=== PATIENT | male | born 1930 | race Caucasian/White ===

== ENCOUNTER 2016-05-06 11:10 | Inpatient (IN) | payer MEDICARE, OTHER ==
[~2016-05-06] VITALS: Ht 175.3 cm; Wt 80.0 kg
[~2016-05-06 11:10] MED LIST: ACID1TAB7 PO; AMLO5TAB4 PO; AMOX1TAB12 PO; AMOX1TAB64 PO; ASPI-621 PO; ATOR40TA78 PO; CEFD300C2 PO; CEFU500T PO; CHOL200040 PO; CIPR250T2 PO; CIPR250T27 PO; CIPR500T3 PO; DOXY100T PO; DUTA0.5C PO; FERR325T20 PO; HYDR-3138 PO; HYDR-3240 PO; LISI5TAB7 PO; MAGN2400 PO; METO-99 PO; MULT1TAB81 PO; OMEP-110 PO; OMEP20CA9 PO; ONDA4TAB10 PO; POLY17PO5 PO; SULF1TAB24 PO; TAMS0.4C2 PO
[2016-05-06] MEDS ORDERED: SODIUM CHLORIDE 0.9% 1,000 ML IV ONE (12:09)
[2016-05-06] MEDS ORDERED: SODIUM CHLORIDE FLUSH 10ML SYR IVF ONE (12:30)
[2016-05-06 12:42] LABS: HEMOGLOBIN 11.3 g/dL (13.7-18.0)
[2016-05-06 12:55] LABS: BLOOD UREA NITROGEN 31 mg/dL (7-18)
[2016-05-06 12:59] LABS: ASPARTATE AMINO TRANSFERASE 10 U/L (15-37)
[2016-05-06 13:41] LABS: DIFF TOTAL CELLS COUNTED 100 CELL DIFF
[2016-05-06 13:43] LABS: VERIFY COUNTS? YES
[2016-05-06 13:44] LABS: ANISOCYTOSIS 1+; MICROCYTOSIS 1+
[2016-05-06 13:45] LABS: OVALOCYTES 1+
[2016-05-06] MEDS ORDERED: CEFTRIAXONE PMX 1GM/50ML 50 ML IV ONE (14:30)
[2016-05-06] MEDS ORDERED: CEFTRIAXONE PMX 1GM/50ML 50 ML ONE (15:21)
[2016-05-06] MEDS ORDERED: SODIUM CHLORIDE 0.9% 1,000 ML IV SCH (15:38)
[2016-05-06] MEDS ORDERED: LABETALOL 5MG/ML, 20ML IV PRN (16:00)
[2016-05-06] MEDS ORDERED: DOCUSATE 100 MG CAPSULE PO PRN (16:00)
[2016-05-06] MEDS ORDERED: BISACODYL 10 MG SUPP PR PRN (16:00)
[2016-05-06] MEDS ORDERED: POLYETHYLENE GLYCOL 17 GM PACKET PO PRN (16:00)
[2016-05-06] MEDS ORDERED: VANCOMYCIN PER PHARMACY MC PRN (16:00)
[2016-05-06 16:17] VITALS: BP 169/72
[2016-05-06] MEDS ORDERED: PHARMACOKINETIC MONITORING MC PRN (16:30)
[2016-05-06] MEDS ORDERED: VANCOMYCIN 1,600 MG in SODIUM CHLORIDE 0.9% 250 ML IV ONE (16:30)
[2016-05-06] MEDS ORDERED: PHARMACOKINETIC CONSULTATION MC ONE (16:30)
[2016-05-06] MEDS: CEFTRIAXONE PMX 2GM/50ML 50 ML IV SCH (17:03)
[2016-05-06 19:23] VITALS: BP 149/65
[2016-05-06] MEDS: METOPROLOL TARTRATE 100 MG TABLET PO SCH (21:48)
[2016-05-06] MEDS: ACETAMINOPHEN 325 MG TABLET PO PRN (21:48)
[2016-05-07 01:28] VITALS: BP 154/71
[2016-05-07 04:54] LABS: HEMOGLOBIN 10.6 g/dL (13.7-18.0)
[2016-05-07 05:02] LABS: BLOOD UREA NITROGEN 26 mg/dL (7-18)
[2016-05-07 05:16] LABS: DIFF TOTAL CELLS COUNTED 100 CELL DIFF
[2016-05-07 05:18] LABS: ANISOCYTOSIS 1+; MICROCYTOSIS 1+; POLYCHROMASIA 1+; VERIFY COUNTS? YES
[2016-05-07 05:19] LABS: OVALOCYTES 1+
[2016-05-07 06:48] VITALS: BP 156/71
[2016-05-07] MEDS: METOPROLOL TARTRATE 100 MG TABLET PO SCH ×2 (09:15→22:41)
[2016-05-07] MEDS: MULTIVITAMINS WITH IRON TABLET PO SCH (09:16)
[2016-05-07] MEDS: ASPIRIN 81 MG TABLET EC PO SCH (09:16)
[2016-05-07] MEDS: TAMSULOSIN 0.4 MG CAP.ER.24H PO SCH (09:16)
[2016-05-07 12:42] VITALS: BP 131/63
[2016-05-07] MEDS: CEFTRIAXONE PMX 2GM/50ML 50 ML IV SCH (15:49)
[2016-05-07 20:50] VITALS: BP 147/62
[2016-05-08 02:50] VITALS: BP 166/68
[2016-05-08 05:13] LABS: HEMOGLOBIN 10.8 g/dL (13.7-18.0)
[2016-05-08 05:20] LABS: BLOOD UREA NITROGEN 29 mg/dL (7-18)
[2016-05-08 05:46] LABS: DIFF TOTAL CELLS COUNTED 100 CELL DIFF
[2016-05-08 05:48] LABS: ANISOCYTOSIS 1+; MICROCYTOSIS 1+; VERIFY COUNTS? YES
[2016-05-08 05:50] LABS: LARGE PLATELETS 1+; OVALOCYTES 1+; POLYCHROMASIA 1+
[2016-05-08] MEDS: metroNIDAZOLE 500 MG TABLET PO SCH ×3 (08:00→22:20)
[2016-05-08 08:13] VITALS: BP 173/74
[2016-05-08] MEDS: TAMSULOSIN 0.4 MG CAP.ER.24H PO SCH (08:20)
[2016-05-08] MEDS: ASPIRIN 81 MG TABLET EC PO SCH (08:20)
[2016-05-08] MEDS: MULTIVITAMINS WITH IRON TABLET PO SCH (08:20)
[2016-05-08] MEDS: METOPROLOL TARTRATE 100 MG TABLET PO SCH ×2 (08:20→22:20)
[2016-05-08 13:56] VITALS: BP 163/67
[2016-05-08] MEDS ORDERED: GOLYTELY 4,000ML ORAL.SOL PO ONE (15:00)
[2016-05-08] MEDS: CEFTRIAXONE PMX 2GM/50ML 50 ML IV SCH (16:19)
[2016-05-08] MEDS: ONDANSETRON 2MG/ML, 2ML IVP PRN ×2 (16:20→22:36)
[2016-05-08] MEDS ORDERED: NEOMYCIN SULFATE 500 MG TABLET PO SCH ×2 (17:00→23:00)
[2016-05-08] MEDS ORDERED: VANCOMYCIN 1,600 MG in SODIUM CHLORIDE 0.9% 250 ML IV SCH (18:00)
[2016-05-08 19:09] VITALS: BP 138/67
[2016-05-08] MEDS: D5%-0.45NACL+KCL 20MEQ 1,000 ML IV SCH (23:28)
[2016-05-09 03:00] VITALS: BP 159/68
[2016-05-09 04:54] LABS: BLOOD UREA NITROGEN 23 mg/dL (7-18)
[2016-05-09 04:58] LABS: HEMOGLOBIN 11.3 g/dL (13.7-18.0)
[2016-05-09] MEDS: metroNIDAZOLE 500 MG TABLET PO SCH (05:08)
[2016-05-09] MEDS: D5%-0.45NACL+KCL 20MEQ 1,000 ML IV SCH ×2 (07:59→08:50)
[2016-05-09 08:45] VITALS: BP 151/65
[2016-05-09] MEDS: ASPIRIN 81 MG TABLET EC PO SCH (09:00)
[2016-05-09] MEDS: METOPROLOL TARTRATE 100 MG TABLET PO SCH ×2 (10:31→21:00)
[2016-05-09] MEDS: TAMSULOSIN 0.4 MG CAP.ER.24H PO SCH (10:31)
[2016-05-09] MEDS: MULTIVITAMINS WITH IRON TABLET PO SCH (10:31)
[2016-05-09] MEDS: AMPICILLIN/SULBACTAM 1,500 MG in SODIUM CHLORIDE 0.9% 50 ML IV SCH ×2 (10:31→17:00)
[2016-05-09 14:59] VITALS: BP 150/66
[2016-05-09] MEDS ORDERED: BUPIVACAINE/PF-EPI 0.25% 1:200K ONE (17:05)
[2016-05-09] MEDS ORDERED: NEOSTIGMINE 1 MG/ML, 10ML ONE (17:11)
[2016-05-09] MEDS ORDERED: ROCURONIUM 10 MG/ML ONE (17:11)
[2016-05-09] MEDS ORDERED: FENTANYL PF 250 MCG/5ML ONE ×2 (17:11→18:43)
[2016-05-09] MEDS ORDERED: PHENYLEPHRINE 10 MG/ML ONE (17:11)
[2016-05-09] MEDS ORDERED: PROPOFOL 10 MG/ML, 20ML ONE (17:11)
[2016-05-09] MEDS ORDERED: SUCCINYLCHOLINE 20 MG/ML, 10ML ONE (17:11)
[2016-05-09] MEDS ORDERED: CEFOTETAN 2 GM ONE (17:11)
[2016-05-09] MEDS ORDERED: GLYCOPYRROLATE 0.2MG/1ML ONE ×2 (17:11)
[2016-05-09] MEDS ORDERED: ONDANSETRON 2MG/ML, 2ML IVPush PRN (18:00)
[2016-05-09] MEDS ORDERED: EPHEDRINE 50 MG/ML, 1ML IVPush PRN (18:00)
[2016-05-09] MEDS ORDERED: METOPROLOL 1 MG/ML, 5ML IV PRN (18:00)
[2016-05-09] MEDS ORDERED: LABETALOL 5MG/ML, 20ML IV PRN (18:00)
[2016-05-09] MEDS ORDERED: ACETAMINOPHEN 325 MG TABLET PO PRN (18:00)
[2016-05-09] MEDS ORDERED: PROMETHAZINE 25 MG/ML, 1ML IV PRN (18:00)
[2016-05-09] MEDS ORDERED: hydrALAzine 20 MG/ML, 1ML IV PRN (18:00)
[2016-05-09] MEDS ORDERED: OXYcodone 5 MG/5 ML ORAL.SOL UDC PO PRN (18:00)
[2016-05-09] MEDS ORDERED: HYDROmorphone 1 MG/ML, 1ML IV PRN (18:00)
[2016-05-09] MEDS ORDERED: FENTANYL PF 100 MCG/2ML IV PRN (18:00)
[2016-05-09] MEDS ORDERED: HYDROmorphone 2 MG/ML, 1ML ONE (19:37)
[2016-05-09] MEDS ORDERED: OXYcodone 5 MG/5 ML ORAL.SOL UDC ONE (19:37)
[2016-05-09 20:49] VITALS: BP 155/75
[2016-05-10] MEDS: MORPHINE SULFATE 4 MG/ML, 1ML IVPush PRN ×2 (00:11→10:08)
[2016-05-10] MEDS: AMPICILLIN/SULBACTAM 1,500 MG in SODIUM CHLORIDE 0.9% 50 ML IV SCH ×3 (00:11→17:42)
[2016-05-10 03:23] VITALS: BP 115/65
[2016-05-10 05:33] LABS: BLOOD UREA NITROGEN 22 mg/dL (7-18)
[2016-05-10 05:38] LABS: HEMOGLOBIN 11.4 g/dL (13.7-18.0)
[2016-05-10] MEDS: D5%-0.45NACL+KCL 20MEQ 1,000 ML IV SCH ×2 (06:31→19:31)
[2016-05-10 09:17] VITALS: BP 112/58
[2016-05-10] MEDS: MULTIVITAMINS WITH IRON TABLET PO SCH (09:34)
[2016-05-10] MEDS: TAMSULOSIN 0.4 MG CAP.ER.24H PO SCH (09:34)
[2016-05-10] MEDS: METOPROLOL TARTRATE 100 MG TABLET PO SCH ×2 (09:34→20:21)
[2016-05-10] MEDS: ASPIRIN 81 MG TABLET EC PO SCH (09:35)
[2016-05-10 12:54] VITALS: BP 111/62
[2016-05-10] MEDS: HYDROcodone/APAP 5/325 TABLET PO PRN ×2 (14:34→15:02)
[2016-05-10 19:11] VITALS: BP 109/56
[2016-05-11] MEDS: AMPICILLIN/SULBACTAM 1,500 MG in SODIUM CHLORIDE 0.9% 50 ML IV SCH ×3 (01:00→17:04)
[2016-05-11] MEDS: HYDROcodone/APAP 5/325 TABLET PO PRN ×3 (02:07→17:04)
[2016-05-11 02:47] VITALS: BP 153/69
[2016-05-11 04:59] LABS: HEMOGLOBIN 10.4 g/dL (13.7-18.0)
[2016-05-11 05:00] LABS: BLOOD UREA NITROGEN 22 mg/dL (7-18)
[2016-05-11] MEDS: D5%-0.45NACL+KCL 20MEQ 1,000 ML IV SCH ×2 (05:19→16:12)
[2016-05-11 07:56] VITALS: BP 137/63
[2016-05-11] MEDS: ASPIRIN 81 MG TABLET EC PO SCH (08:43)
[2016-05-11] MEDS: TAMSULOSIN 0.4 MG CAP.ER.24H PO SCH (08:43)
[2016-05-11] MEDS: MULTIVITAMINS WITH IRON TABLET PO SCH (08:43)
[2016-05-11] MEDS: METOPROLOL TARTRATE 100 MG TABLET PO SCH ×2 (08:43→21:30)
[2016-05-11 12:15] VITALS: BP 155/68
[2016-05-11 20:50] VITALS: BP 144/70
[2016-05-12] MEDS: AMPICILLIN/SULBACTAM 1,500 MG in SODIUM CHLORIDE 0.9% 50 ML IV SCH ×3 (00:40→18:10)
[2016-05-12 02:25] VITALS: BP 171/70
[2016-05-12] MEDS: D5%-0.45NACL+KCL 20MEQ 1,000 ML IV SCH (02:57)
[2016-05-12 05:22] LABS: BLOOD UREA NITROGEN 16 mg/dL (7-18)
[2016-05-12 05:28] LABS: HEMOGLOBIN 11.2 g/dL (13.7-18.0)
[2016-05-12 08:00] VITALS: BP 173/82
[2016-05-12] MEDS: METOPROLOL TARTRATE 100 MG TABLET PO SCH ×2 (09:39→21:31)
[2016-05-12] MEDS: TAMSULOSIN 0.4 MG CAP.ER.24H PO SCH (09:39)
[2016-05-12] MEDS: ASPIRIN 81 MG TABLET EC PO SCH (09:39)
[2016-05-12] MEDS: MULTIVITAMINS WITH IRON TABLET PO SCH (09:39)
[2016-05-12] MEDS ORDERED: D5%-0.9% NACL 1,000 ML IV SCH (12:00)
[2016-05-12] MEDS: D5%-0.9% NACL 1,000 ML IV SCH (12:33)
[2016-05-12 14:00] VITALS: BP 161/72
[2016-05-12] MEDS: hydrALAzine 20 MG/ML, 1ML IV PRN (18:10)
[2016-05-12 20:45] VITALS: BP 158/76
[2016-05-13] MEDS: AMPICILLIN/SULBACTAM 1,500 MG in SODIUM CHLORIDE 0.9% 50 ML IV SCH ×3 (00:52→17:54)
[2016-05-13] MEDS: hydrALAzine 20 MG/ML, 1ML IV PRN (01:57)
[2016-05-13 02:30] VITALS: BP 166/78
[2016-05-13 05:12] LABS: HEMOGLOBIN 11.6 g/dL (13.7-18.0)
[2016-05-13 05:32] LABS: BLOOD UREA NITROGEN 14 mg/dL (7-18)
[2016-05-13 05:42] LABS: ANISOCYTOSIS 1+; HYPOCHROMIA 1+; MICROCYTOSIS 1+; POIKILOCYTOSIS 1+; POLYCHROMASIA 1+
[2016-05-13 05:43] LABS: OVALOCYTES 1+; SCHISTOCYTES 1+
[2016-05-13 05:44] LABS: LARGE PLATELETS 1+
[2016-05-13 08:08] VITALS: BP 127/71
[2016-05-13] MEDS: D5%-0.9% NACL 1,000 ML IV SCH (08:27)
[2016-05-13] MEDS: ASPIRIN 81 MG TABLET EC PO SCH (08:34)
[2016-05-13] MEDS: METOPROLOL TARTRATE 100 MG TABLET PO SCH ×2 (08:38→22:59)
[2016-05-13] MEDS: TAMSULOSIN 0.4 MG CAP.ER.24H PO SCH (08:38)
[2016-05-13] MEDS: MULTIVITAMINS WITH IRON TABLET PO SCH (08:39)
[2016-05-13 13:41] VITALS: BP 136/73
[2016-05-13 14:16] VITALS: BP 123/63
[2016-05-13 16:38] VITALS: BP 129/75
[2016-05-13 18:38] VITALS: BP 129/75
[2016-05-14] MEDS: AMPICILLIN/SULBACTAM 1,500 MG in SODIUM CHLORIDE 0.9% 50 ML IV SCH ×2 (01:04→08:57)
[2016-05-14 02:55] VITALS: BP 152/73
[2016-05-14 04:38] LABS: HEMOGLOBIN 10.6 g/dL (13.7-18.0)
[2016-05-14 04:52] LABS: BLOOD UREA NITROGEN 22 mg/dL (7-18)
[2016-05-14 07:25] VITALS: BP 155/79
[2016-05-14] MEDS: METOPROLOL TARTRATE 100 MG TABLET PO SCH ×2 (08:57→20:43)
[2016-05-14] MEDS: D5%-0.9% NACL 1,000 ML IV SCH ×3 (08:58→20:43)
[2016-05-14] MEDS: ASPIRIN 81 MG TABLET EC PO SCH (08:58)
[2016-05-14] MEDS: TAMSULOSIN 0.4 MG CAP.ER.24H PO SCH (08:58)
[2016-05-14] MEDS: MULTIVITAMINS WITH IRON TABLET PO SCH (08:58)
[2016-05-14 12:51] VITALS: BP 146/64
[2016-05-14] MEDS: ACETAMINOPHEN 325 MG TABLET PO PRN (14:54)
[2016-05-14 20:41] VITALS: BP 143/74
[2016-05-14 22:26] VITALS: BP 167/74
[2016-05-15 02:30] VITALS: BP 168/74
[2016-05-15 04:37] LABS: HEMOGLOBIN 10.7 g/dL (13.7-18.0)
[2016-05-15 04:52] LABS: BLOOD UREA NITROGEN 24 mg/dL (7-18)
[2016-05-15] MEDS: D5%-0.9% NACL 1,000 ML IV SCH (06:04)
[2016-05-15 07:09] VITALS: BP 147/69
[2016-05-15] MEDS: MULTIVITAMINS WITH IRON TABLET PO SCH (11:39)
[2016-05-15] MEDS: METOPROLOL TARTRATE 100 MG TABLET PO SCH ×2 (11:39→21:09)
[2016-05-15] MEDS: ASPIRIN 81 MG TABLET EC PO SCH (11:39)
[2016-05-15] MEDS: SODIUM CHLORIDE 0.9% 1,000 ML IV SCH ×3 (11:39→21:09)
[2016-05-15] MEDS: TAMSULOSIN 0.4 MG CAP.ER.24H PO SCH (11:39)
[2016-05-15 14:12] VITALS: BP 155/83
[2016-05-15 20:09] VITALS: BP 162/72
[2016-05-16 01:30] VITALS: BP 161/66
[2016-05-16] MEDS: SODIUM CHLORIDE 0.9% 1,000 ML IV SCH ×4 (02:09→19:00)
[2016-05-16 04:29] LABS: HEMOGLOBIN 10.4 g/dL (13.7-18.0)
[2016-05-16 04:40] LABS: BLOOD UREA NITROGEN 23 mg/dL (7-18)
[2016-05-16] MEDS: ACETAMINOPHEN 325 MG TABLET PO PRN (05:04)
[2016-05-16 06:49] VITALS: BP 173/98
[2016-05-16] MEDS: TAMSULOSIN 0.4 MG CAP.ER.24H PO SCH (07:46)
[2016-05-16] MEDS: ASPIRIN 81 MG TABLET EC PO SCH (07:46)
[2016-05-16] MEDS: METOPROLOL TARTRATE 100 MG TABLET PO SCH ×2 (07:46→20:19)
[2016-05-16] MEDS: MULTIVITAMINS WITH IRON TABLET PO SCH (07:46)
[2016-05-16] MEDS ORDERED: MAGNESIUM SULFATE PMX 4GM/100M 100 ML IV ONE (13:00)
[2016-05-16 13:24] VITALS: BP 129/61
[2016-05-16 20:16] VITALS: BP 152/67
[2016-05-17] MEDS: SODIUM CHLORIDE 0.9% 1,000 ML IV SCH ×3 (00:43→12:37)
[2016-05-17 02:42] VITALS: BP 162/72
[2016-05-17 05:01] LABS: HEMOGLOBIN 10.1 g/dL (13.7-18.0)
[2016-05-17 05:12] LABS: BLOOD UREA NITROGEN 25 mg/dL (7-18)
[2016-05-17 08:34] VITALS: BP 151/71
[2016-05-17] MEDS: ASPIRIN 81 MG TABLET EC PO SCH (10:12)
[2016-05-17] MEDS: TAMSULOSIN 0.4 MG CAP.ER.24H PO SCH (10:12)
[2016-05-17] MEDS: METOPROLOL TARTRATE 100 MG TABLET PO SCH (10:13)
[2016-05-17] MEDS: MULTIVITAMINS WITH IRON TABLET PO SCH (10:13)
[2016-05-17] MEDS ORDERED: AMOX1TAB12 PO (12:00)
[2016-05-17] MEDS ORDERED: AMOXICILLIN/CLAV 875-125MG TABLET PO SCH (12:00)
[2016-05-17] MEDS: ONDANSETRON 2MG/ML, 2ML IVP PRN (12:42)
[2016-05-17 12:43] VITALS: BP 169/66
== END 2016-05-17 15:55 | DRG 353 ==
LOC: ED 11:44 → EDIP 15:38 → 3NW 15:54
PROVIDERS: ADMIT Internal Medicine; ATTEND Internal Medicine
PROC: 0WUF0JZ Supplement Abdominal Wall with Synthetic Substitute, Open Approach (ICD-10-PCS; principal; 2016-05-09 17:30)
DX: K43.3 Parastomal hernia with obstruction, without gangrene (principal); N17.0 Acute kidney failure with tubular necrosis; N39.0 Urinary tract infection, site not specified; E87.1 Hypo-osmolality and hyponatremia; B95.2 Enterococcus as the cause of diseases classified elsewhere; N18.3 Chronic kidney disease, stage 3 (moderate); D64.89 Other specified anemias; D63.8 Anemia in other chronic diseases classified elsewhere; I13.10 Hypertensive heart and chronic kidney disease without heart failure, with stage 1 through stage 4 chronic kidney disease, or unspecified chronic kidney disease; K21.9 Gastro-esophageal reflux disease without esophagitis; N40.0 Benign prostatic hyperplasia without lower urinary tract symptoms; E78.5 Hyperlipidemia, unspecified; M54.9 Dorsalgia, unspecified; H91.90 Unspecified hearing loss, unspecified ear; G89.29 Other chronic pain; E83.42 Hypomagnesemia; K66.0 Peritoneal adhesions (postprocedural) (postinfection); I25.10 Atherosclerotic heart disease of native coronary artery without angina pectoris; R32 Unspecified urinary incontinence; K40.20 Bilateral inguinal hernia, without obstruction or gangrene, not specified as recurrent; Z85.038 Personal history of other malignant neoplasm of large intestine; Z85.46 Personal history of malignant neoplasm of prostate; Z87.440 Personal history of urinary (tract) infections; Z93.3 Colostomy status; Z85.048 Personal history of other malignant neoplasm of rectum, rectosigmoid junction, and anus; Z87.891 Personal history of nicotine dependence; Z90.49 Acquired absence of other specified parts of digestive tract
CPT/HCPCS: 36415; 71010; 74176; 80048; 80053; 81001; 82040; 82570; 83690; 83735; 83935; 84100; 84145; 84156; 84300; 85025; 85610; 87077; 87086; 87186; 87205; 93005; 96361; 96365; J0696; J2405; J2704; J2710; J3010; J3370; J3490; J7042; C1762; J0295; J0330; J0360; J2370; J3475; J3480; J7030; J7050; S0074

== ENCOUNTER 2016-08-04 17:02 | Inpatient (IN) | payer MEDICARE, OTHER ==
[~2016-08-04] VITALS: Ht 175.3 cm; Wt 79.6 kg
[~2016-08-04 17:02] MED LIST changes: -CEFD300C2 PO; +CEFD300C37 PO
[2016-08-04] MEDS ORDERED: SODIUM CHLORIDE FLUSH 10ML SYR IVF ONE (17:30)
[2016-08-04] MEDS ORDERED: SODIUM CHLORIDE 0.9% 1,000ML IV ONE (17:30)
[2016-08-04 17:48] LABS: PATH.CAST-FLAG NOT PRESENT; SPERM-FLAG NOT PRESENT; SRC-FLAG NOT PRESENT; XTAL-FLAG NOT PRESENT; YLC-FLAG NOT PRESENT
[2016-08-04 17:49] LABS: ASPARTATE AMINO TRANSFERASE 16 U/L (15-37); BLOOD UREA NITROGEN 35 mg/dL (7-18)
[2016-08-04] MEDS ORDERED: NITROFURANTOIN (MACROBID) 100 MG CAPSULE PO ONE (18:30)
[2016-08-04] MEDS ORDERED: SODIUM CHLORIDE 0.9%, 250ML IVBOLUS ONE (21:30)
[2016-08-04] MEDS ORDERED: MORPHINE SULFATE 4 MG/ML, 1ML IVPush ONE (21:30)
[2016-08-04] MEDS ORDERED: CEFTRIAXONE PMX 2GM/50ML 50 ML IV ONE (21:30)
[2016-08-04] MEDS ORDERED: MORPHINE SULFATE 4 MG/ML, 1ML ONE (21:56)
[2016-08-04] MEDS ORDERED: CEFTRIAXONE PMX 2GM/50ML 50 ML ONE (21:56)
[2016-08-04] MEDS: SODIUM CHLORIDE 0.9% 1,000 ML IV SCH (23:38)
[2016-08-05] MEDS ORDERED: hydrALAzine 20 MG/ML, 1ML IVPush PRN
[2016-08-05] MEDS ORDERED: BISACODYL 10 MG SUPP PR PRN
[2016-08-05] MEDS ORDERED: POLYETHYLENE GLYCOL 17 GM PACKET PO PRN
[2016-08-05] MEDS ORDERED: DOCUSATE 100 MG CAPSULE PO PRN
[2016-08-05] MEDS ORDERED: TRAZODONE 50MG TABLET PO PRN
[2016-08-05 05:43] LABS: ASPARTATE AMINO TRANSFERASE 13 U/L (15-37); BLOOD UREA NITROGEN 31 mg/dL (7-18)
[2016-08-05] MEDS: AMPICILLIN/SULBACTAM 3 GM in SODIUM CHLORIDE 0.9% 100 ML IV SCH ×5 (06:04→23:40)
[2016-08-05] MEDS: SODIUM CHLORIDE 0.9% 1,000 ML IV SCH ×2 (09:11→11:04)
[2016-08-05] MEDS: ASPIRIN 81 MG TABLET EC PO SCH (09:11)
[2016-08-05] MEDS: TAMSULOSIN 0.4 MG CAP.ER.24H PO SCH (09:11)
[2016-08-05] MEDS: METOPROLOL TARTRATE 100 MG TABLET PO SCH ×2 (09:12→21:37)
[2016-08-05] MEDS: HEPARIN 5,000 UNITS/ML, 1ML SQ SCH ×2 (09:12)
[2016-08-05 09:13] VITALS: BP 128/72
[2016-08-05] MEDS: morphine SULFATE 10 MG/ML, 1ML IVPush PRN ×2 (11:24→23:40)
[2016-08-05] MEDS: ACETAMINOPHEN 325 MG TABLET PO PRN ×3 (12:35→21:37)
[2016-08-05 14:27] VITALS: BP 135/65
[2016-08-05 19:34] VITALS: BP 127/62
[2016-08-06 01:56] VITALS: BP 145/64
[2016-08-06 04:32] LABS: BLOOD UREA NITROGEN 30 mg/dL (7-18)
[2016-08-06] MEDS: SODIUM CHLORIDE 0.9% 1,000 ML IV SCH ×2 (04:54→12:08)
[2016-08-06] MEDS: AMPICILLIN/SULBACTAM 3 GM in SODIUM CHLORIDE 0.9% 100 ML IV SCH ×2 (04:57→16:36)
[2016-08-06 07:19] VITALS: BP 154/72
[2016-08-06] MEDS: ASPIRIN 81 MG TABLET EC PO SCH (08:40)
[2016-08-06] MEDS: METOPROLOL TARTRATE 100 MG TABLET PO SCH ×2 (08:40→20:51)
[2016-08-06] MEDS: TAMSULOSIN 0.4 MG CAP.ER.24H PO SCH (08:40)
[2016-08-06] MEDS: ACETAMINOPHEN 325 MG TABLET PO PRN (08:42)
[2016-08-06] MEDS: morphine SULFATE 10 MG/ML, 1ML IVPush PRN (12:08)
[2016-08-06 14:23] VITALS: BP 131/65
[2016-08-06 19:11] VITALS: BP 146/73
[2016-08-06] MEDS ORDERED: ONDANSETRON 2MG/ML, 2ML ONE (20:48)
[2016-08-06] MEDS ORDERED: ONDANSETRON 2MG/ML, 2ML IVPush ONE (21:00)
[2016-08-07 01:50] VITALS: BP 127/68
[2016-08-07 05:07] LABS: BLOOD UREA NITROGEN 27 mg/dL (7-18)
[2016-08-07] MEDS: AMPICILLIN/SULBACTAM 3 GM in SODIUM CHLORIDE 0.9% 100 ML IV SCH ×3 (05:47→23:10)
[2016-08-07 07:24] VITALS: BP 153/76
[2016-08-07] MEDS: ASPIRIN 81 MG TABLET EC PO SCH (08:38)
[2016-08-07] MEDS: TAMSULOSIN 0.4 MG CAP.ER.24H PO SCH (08:38)
[2016-08-07] MEDS: METOPROLOL TARTRATE 100 MG TABLET PO SCH ×2 (08:39→21:50)
[2016-08-07] MEDS: ONDANSETRON ODT 4 MG PO PRN (10:21)
[2016-08-07 13:22] VITALS: BP 157/78
[2016-08-07 18:47] LABS: PATH.CAST-FLAG NOT PRESENT; SPERM-FLAG NOT PRESENT; SRC-FLAG NOT PRESENT; XTAL-FLAG NOT PRESENT; YLC-FLAG NOT PRESENT
[2016-08-07 20:38] VITALS: BP 158/84
[2016-08-07] MEDS: morphine SULFATE 10 MG/ML, 1ML IVPush PRN (23:34)
[2016-08-08 02:17] VITALS: BP 143/74
[2016-08-08 04:35] LABS: BLOOD UREA NITROGEN 24 mg/dL (7-18)
[2016-08-08] MEDS: ACETAMINOPHEN 325 MG TABLET PO PRN ×3 (06:51→23:00)
[2016-08-08] MEDS: AMPICILLIN/SULBACTAM 3 GM in SODIUM CHLORIDE 0.9% 100 ML IV SCH ×3 (06:52→22:56)
[2016-08-08 07:36] VITALS: BP 155/74
[2016-08-08] MEDS: ONDANSETRON ODT 4 MG PO PRN (07:39)
[2016-08-08] MEDS: ASPIRIN 81 MG TABLET EC PO SCH (07:39)
[2016-08-08] MEDS: METOPROLOL TARTRATE 100 MG TABLET PO SCH ×2 (07:40→20:45)
[2016-08-08] MEDS: TAMSULOSIN 0.4 MG CAP.ER.24H PO SCH (07:40)
[2016-08-08 14:22] VITALS: BP 159/89
[2016-08-08] MEDS ORDERED: FUROSEMIDE 20 MG/2 ML IV ONE (19:00)
[2016-08-08 19:28] VITALS: BP 149/71
[2016-08-08 20:33] VITALS: BP 175/97
[2016-08-08] MEDS ORDERED: MORPHINE SULFATE 4 MG/ML, 1ML ONE (20:42)
[2016-08-08] MEDS: morphine SULFATE 10 MG/ML, 1ML IVPush PRN (20:45)
[2016-08-08 22:56] VITALS: BP 152/72
[2016-08-09 01:18] VITALS: BP 131/72
[2016-08-09 05:13] LABS: BLOOD UREA NITROGEN 27 mg/dL (7-18)
[2016-08-09] MEDS: ACETAMINOPHEN 325 MG TABLET PO PRN (07:29)
[2016-08-09] MEDS: AMPICILLIN/SULBACTAM 3 GM in SODIUM CHLORIDE 0.9% 100 ML IV SCH ×3 (07:29→22:46)
[2016-08-09] MEDS: TAMSULOSIN 0.4 MG CAP.ER.24H PO SCH (09:26)
[2016-08-09] MEDS: ASPIRIN 81 MG TABLET EC PO SCH (09:26)
[2016-08-09] MEDS: METOPROLOL TARTRATE 100 MG TABLET PO SCH ×2 (09:30→20:42)
[2016-08-09 09:31] VITALS: BP 154/68
[2016-08-09 13:45] VITALS: BP 135/76
[2016-08-09] MEDS ORDERED: FUROSEMIDE 40 MG/4 ML IV ONE (16:00)
[2016-08-09] MEDS: HEPARIN 5,000 UNITS/ML, 1ML SQ SCH ×2 (16:42→22:46)
[2016-08-09 20:04] VITALS: BP 154/69
[2016-08-10 02:15] VITALS: BP 155/79
[2016-08-10 05:24] LABS: BLOOD UREA NITROGEN 24 mg/dL (7-18)
[2016-08-10 07:35] VITALS: BP 157/73
[2016-08-10] MEDS ORDERED: FUROSEMIDE 40 MG/4 ML IV ONE (08:00)
[2016-08-10] MEDS: AMPICILLIN/SULBACTAM 3 GM in SODIUM CHLORIDE 0.9% 100 ML IV SCH ×3 (09:14→23:13)
[2016-08-10] MEDS: HEPARIN 5,000 UNITS/ML, 1ML SQ SCH ×3 (09:18→23:13)
[2016-08-10] MEDS: METOPROLOL TARTRATE 100 MG TABLET PO SCH ×2 (09:18→19:51)
[2016-08-10] MEDS: TAMSULOSIN 0.4 MG CAP.ER.24H PO SCH (09:18)
[2016-08-10] MEDS: ASPIRIN 81 MG TABLET EC PO SCH (09:18)
[2016-08-10 13:17] VITALS: BP 153/66
[2016-08-10 18:45] VITALS: BP 148/69
[2016-08-11 02:18] VITALS: BP 159/78
[2016-08-11 04:47] LABS: BLOOD UREA NITROGEN 23 mg/dL (7-18)
[2016-08-11] MEDS: AMPICILLIN/SULBACTAM 3 GM in SODIUM CHLORIDE 0.9% 100 ML IV SCH ×3 (06:35→23:11)
[2016-08-11 07:13] VITALS: BP 148/70
[2016-08-11] MEDS: HEPARIN 5,000 UNITS/ML, 1ML SQ SCH ×3 (08:14→23:10)
[2016-08-11] MEDS: METOPROLOL TARTRATE 100 MG TABLET PO SCH ×2 (08:15→21:11)
[2016-08-11] MEDS: FUROSEMIDE 40 MG/4 ML IV SCH (08:15)
[2016-08-11] MEDS: ASPIRIN 81 MG TABLET EC PO SCH (08:15)
[2016-08-11] MEDS: TAMSULOSIN 0.4 MG CAP.ER.24H PO SCH (08:15)
[2016-08-11 13:54] VITALS: BP 129/60
[2016-08-11 20:21] VITALS: BP 135/69
[2016-08-12 01:18] VITALS: BP 153/73
[2016-08-12 04:51] LABS: BLOOD UREA NITROGEN 25 mg/dL (7-18)
[2016-08-12] MEDS: AMPICILLIN/SULBACTAM 3 GM in SODIUM CHLORIDE 0.9% 100 ML IV SCH ×3 (06:00→23:47)
[2016-08-12 07:23] VITALS: BP 137/71
[2016-08-12] MEDS: FUROSEMIDE 40 MG/4 ML IV SCH (08:14)
[2016-08-12] MEDS: TAMSULOSIN 0.4 MG CAP.ER.24H PO SCH (08:15)
[2016-08-12] MEDS: ASPIRIN 81 MG TABLET EC PO SCH (08:15)
[2016-08-12] MEDS: HEPARIN 5,000 UNITS/ML, 1ML SQ SCH ×3 (08:15→23:47)
[2016-08-12] MEDS: METOPROLOL TARTRATE 100 MG TABLET PO SCH ×2 (08:16→20:52)
[2016-08-12] MEDS: ACETAMINOPHEN 325 MG TABLET PO PRN (10:38)
[2016-08-12 14:12] VITALS: BP 143/78
[2016-08-12 19:34] VITALS: BP 138/69
[2016-08-13 02:02] VITALS: BP 154/72
[2016-08-13 07:31] VITALS: BP 136/73
[2016-08-13] MEDS: ASPIRIN 81 MG TABLET EC PO SCH (08:04)
[2016-08-13] MEDS: TAMSULOSIN 0.4 MG CAP.ER.24H PO SCH (08:04)
[2016-08-13] MEDS: METOPROLOL TARTRATE 100 MG TABLET PO SCH (08:04)
[2016-08-13] MEDS: AMPICILLIN/SULBACTAM 3 GM in SODIUM CHLORIDE 0.9% 100 ML IV SCH (08:05)
[2016-08-13] MEDS: HEPARIN 5,000 UNITS/ML, 1ML SQ SCH (08:05)
[2016-08-13] MEDS: FUROSEMIDE 40 MG/4 ML IV SCH (08:05)
[2016-08-13] MEDS: ACETAMINOPHEN 325 MG TABLET PO PRN (11:02)
[2016-08-13 13:44] VITALS: BP 126/65
== END 2016-08-13 16:20 | disposition home or self-care (01) | DRG 871 ==
LOC: ED 21:20 → EDIP 21:22 → ED 21:46 → 3NW 23:30
PROVIDERS: ADMIT Internal Medicine; ATTEND Internal Medicine
DX: A41.9 Sepsis, unspecified organism (principal); N17.0 Acute kidney failure with tubular necrosis; J96.00 Acute respiratory failure, unspecified whether with hypoxia or hypercapnia; E87.1 Hypo-osmolality and hyponatremia; I13.0 Hypertensive heart and chronic kidney disease with heart failure and stage 1 through stage 4 chronic kidney disease, or unspecified chronic kidney disease; N10 Acute pyelonephritis; D50.9 Iron deficiency anemia, unspecified; E78.5 Hyperlipidemia, unspecified; I25.10 Atherosclerotic heart disease of native coronary artery without angina pectoris; K21.9 Gastro-esophageal reflux disease without esophagitis; I50.9 Heart failure, unspecified; K40.90 Unilateral inguinal hernia, without obstruction or gangrene, not specified as recurrent; N18.3 Chronic kidney disease, stage 3 (moderate); N40.0 Benign prostatic hyperplasia without lower urinary tract symptoms; Z85.46 Personal history of malignant neoplasm of prostate; Z85.038 Personal history of other malignant neoplasm of large intestine; Z87.440 Personal history of urinary (tract) infections; Z87.891 Personal history of nicotine dependence; Z93.3 Colostomy status; Z87.19 Personal history of other diseases of the digestive system; Z98.49 Cataract extraction status, unspecified eye
CPT/HCPCS: 36415; 71010; 74176; 80048; 80053; 81001; 83690; 83735; 83880; 84439; 84443; 85014; 85018; 85025; 87040; 87086; 96361; 96365; 96375; J0295; J0696; J1644; J1940; J2405; Q0162; J2270; J7030; J7050

== ENCOUNTER 2016-08-23 16:31 | Emergency (ER) | payer MEDICARE, OTHER ==
[~2016-08-23] VITALS: Ht 175.3 cm; Wt 78.0 kg
[2016-08-23] MEDS ORDERED: SODIUM CHLORIDE FLUSH 10ML SYR IVF ONE (17:30)
[2016-08-23 17:54] LABS: ASPARTATE AMINO TRANSFERASE 11 U/L (15-37); BLOOD UREA NITROGEN 33 mg/dL (7-18)
[2016-08-23 18:43] VITALS: BP 180/95
== END 2016-08-23 18:52 | disposition home or self-care (01) ==
LOC: ED 18:50
DX: N30.91 Cystitis, unspecified with hematuria (principal); N17.9 Acute kidney failure, unspecified; N18.9 Chronic kidney disease, unspecified; I12.9 Hypertensive chronic kidney disease with stage 1 through stage 4 chronic kidney disease, or unspecified chronic kidney disease; E78.5 Hyperlipidemia, unspecified; I10 Essential (primary) hypertension; Z87.891 Personal history of nicotine dependence
CPT/HCPCS: 36415; 74022; 80053; 81001; 83690; 85025; 85610; 85730; 87086

== ENCOUNTER 2016-08-24 07:39 | Emergency (ER) | payer MEDICARE, OTHER ==
[~2016-08-24] VITALS: Ht 170.2 cm; Wt 78.0 kg
[2016-08-24 07:42] VITALS: BP 143/69
== END 2016-08-24 09:27 | disposition home or self-care (01) ==
LOC: ED 07:48
DX: Z76.0 Encounter for issue of repeat prescription (principal); K21.9 Gastro-esophageal reflux disease without esophagitis; I10 Essential (primary) hypertension; E78.5 Hyperlipidemia, unspecified
CPT/HCPCS: 99283

== ENCOUNTER 2016-09-04 15:12 | Inpatient (IN) | payer MEDICARE, OTHER ==
[~2016-09-04] VITALS: Ht 175.3 cm; Wt 79.1 kg
[2016-09-04 15:48] LABS: BLOOD UREA NITROGEN 37 mg/dL (7-18)
[2016-09-04] MEDS ORDERED: SODIUM CHLORIDE 0.9% 1,000ML IVBOLUS ONE (17:00)
[2016-09-04] MEDS ORDERED: SODIUM CHLORIDE FLUSH 10ML SYR IVF ONE (17:00)
[2016-09-04 18:33] VITALS: BP 161/93
[2016-09-04] MEDS ORDERED: BISACODYL 10 MG SUPP PR PRN (19:00)
[2016-09-04] MEDS ORDERED: POLYETHYLENE GLYCOL 17 GM PACKET PO PRN (19:00)
[2016-09-04] MEDS ORDERED: ONDANSETRON 2MG/ML, 2ML IVPush PRN (19:00)
[2016-09-04] MEDS: SODIUM CHLORIDE 0.9% 1,000 ML IV SCH (21:00)
[2016-09-04] MEDS: FERROUS SULFATE 325 MG TABLET PO SCH (21:23)
[2016-09-04] MEDS: METOPROLOL TARTRATE 100 MG TABLET PO SCH (21:23)
[2016-09-04] MEDS: HEPARIN 5,000 UNITS/ML, 1ML SQ SCH (21:23)
[2016-09-04] MEDS: CEFTRIAXONE PMX 1GM/50ML 50 ML IV SCH (21:39)
[2016-09-04] MEDS: ACETAMINOPHEN 325 MG TABLET PO PRN (23:47)
[2016-09-05 00:58] VITALS: BP 126/66
[2016-09-05 04:49] LABS: BLOOD UREA NITROGEN 35 mg/dL (7-18)
[2016-09-05 04:52] LABS: ASPARTATE AMINO TRANSFERASE 12 U/L (15-37)
[2016-09-05] MEDS: SODIUM CHLORIDE 0.9% 1,000 ML IV SCH ×2 (05:30→15:13)
[2016-09-05] MEDS: HEPARIN 5,000 UNITS/ML, 1ML SQ SCH ×3 (05:58→20:12)
[2016-09-05 07:26] VITALS: BP 146/73
[2016-09-05] MEDS: FERROUS SULFATE 325 MG TABLET PO SCH ×2 (08:04→17:56)
[2016-09-05] MEDS: SENNA/DOCUSATE TABLET PO SCH (08:04)
[2016-09-05] MEDS: TAMSULOSIN 0.4 MG CAP.ER.24H PO SCH (08:04)
[2016-09-05] MEDS: METOPROLOL TARTRATE 100 MG TABLET PO SCH ×2 (08:04→20:12)
[2016-09-05] MEDS: ACETAMINOPHEN 325 MG TABLET PO PRN (09:40)
[2016-09-05 14:16] VITALS: BP 146/72
[2016-09-05] MEDS: CEFTRIAXONE PMX 1GM/50ML 50 ML IV SCH (17:56)
[2016-09-05 18:37] VITALS: BP 155/87
[2016-09-06 01:16] VITALS: BP 156/83
[2016-09-06] MEDS: SODIUM CHLORIDE 0.9% 1,000 ML IV SCH ×3 (02:10→20:17)
[2016-09-06] MEDS: ACETAMINOPHEN 325 MG TABLET PO PRN ×2 (02:41→11:01)
[2016-09-06 03:28] VITALS: BP 161/86
[2016-09-06] MEDS: HEPARIN 5,000 UNITS/ML, 1ML SQ SCH ×3 (05:46→20:17)
[2016-09-06 06:32] VITALS: BP_SYST 172; BP_SYST 173; BP_DIAS 91; BP_DIAS 94
[2016-09-06] MEDS: SENNA/DOCUSATE TABLET PO SCH (09:00)
[2016-09-06] MEDS: METOPROLOL TARTRATE 100 MG TABLET PO SCH ×2 (09:25→20:17)
[2016-09-06] MEDS: TAMSULOSIN 0.4 MG CAP.ER.24H PO SCH (09:25)
[2016-09-06] MEDS: FERROUS SULFATE 325 MG TABLET PO SCH ×2 (09:26→15:45)
[2016-09-06 11:33] LABS: BLOOD UREA NITROGEN 29 mg/dL (7-18)
[2016-09-06 13:26] VITALS: BP 130/69
[2016-09-06] MEDS: CEFTRIAXONE PMX 1GM/50ML 50 ML IV SCH (18:26)
[2016-09-06 19:12] VITALS: BP 160/87
[2016-09-07 00:40] VITALS: BP 157/71
[2016-09-07] MEDS: SODIUM CHLORIDE 0.9% 1,000 ML IV SCH ×2 (04:35→15:30)
[2016-09-07] MEDS: HEPARIN 5,000 UNITS/ML, 1ML SQ SCH ×3 (04:35→21:17)
[2016-09-07] MEDS: ACETAMINOPHEN 325 MG TABLET PO PRN ×3 (04:35→21:18)
[2016-09-07 07:33] VITALS: BP 168/88
[2016-09-07] MEDS: METOPROLOL TARTRATE 100 MG TABLET PO SCH ×2 (08:34→21:17)
[2016-09-07] MEDS: FERROUS SULFATE 325 MG TABLET PO SCH ×2 (08:34→18:06)
[2016-09-07] MEDS: TAMSULOSIN 0.4 MG CAP.ER.24H PO SCH (08:34)
[2016-09-07] MEDS: SENNA/DOCUSATE TABLET PO SCH (08:35)
[2016-09-07 12:49] VITALS: BP 147/77
[2016-09-07] MEDS ORDERED: DOCU-30 PO (15:35)
[2016-09-07] MEDS ORDERED: CEFD300C37 PO (15:35)
[2016-09-07] MEDS ORDERED: AMLO5TAB2 PO (15:35)
[2016-09-07] MEDS ORDERED: FERR325T20 PO (15:35)
[2016-09-07 19:38] VITALS: BP 139/72
[2016-09-07] MEDS: CEFDINIR 300 MG CAPSULE PO SCH (21:16)
[2016-09-07] MEDS: FUROSEMIDE 20 MG TABLET PO SCH (23:30)
[2016-09-08 01:28] VITALS: BP 128/68
[2016-09-08 05:45] LABS: BLOOD UREA NITROGEN 27 mg/dL (7-18)
[2016-09-08] MEDS: HEPARIN 5,000 UNITS/ML, 1ML SQ SCH ×3 (05:54→21:42)
[2016-09-08 07:43] VITALS: BP 169/92
[2016-09-08] MEDS: FERROUS SULFATE 325 MG TABLET PO SCH ×2 (10:07→15:16)
[2016-09-08] MEDS: CEFDINIR 300 MG CAPSULE PO SCH ×2 (10:07→21:40)
[2016-09-08] MEDS: TAMSULOSIN 0.4 MG CAP.ER.24H PO SCH (10:07)
[2016-09-08] MEDS: METOPROLOL TARTRATE 100 MG TABLET PO SCH ×2 (10:07→21:55)
[2016-09-08] MEDS: FUROSEMIDE 20 MG TABLET PO SCH (10:07)
[2016-09-08] MEDS: SODIUM CHLORIDE 0.9% 1,000 ML IV SCH ×3 (10:08→21:30)
[2016-09-08] MEDS: ACETAMINOPHEN 325 MG TABLET PO PRN (10:08)
[2016-09-08] MEDS: SENNA/DOCUSATE TABLET PO SCH (10:08)
[2016-09-08 10:13] VITALS: BP 179/96
[2016-09-08 11:16] LABS: IS PT STATUS REG ER OR PRE ER? NO
[2016-09-08 13:16] VITALS: BP 153/75
[2016-09-08] MEDS ORDERED: FUROSEMIDE 40 MG TABLET ONE (15:14)
[2016-09-08] MEDS ORDERED: FUROSEMIDE 40 MG TABLET PO SCH (15:30)
[2016-09-08] MEDS ORDERED: FUROSEMIDE 40 MG TABLET PO ONE (15:30)
[2016-09-08 19:38] VITALS: BP 147/72
[2016-09-09 01:44] VITALS: BP 136/68
[2016-09-09 04:56] LABS: BLOOD UREA NITROGEN 24 mg/dL (7-18)
[2016-09-09] MEDS: HEPARIN 5,000 UNITS/ML, 1ML SQ SCH ×2 (05:33→13:48)
[2016-09-09 06:33] VITALS: BP 153/72
[2016-09-09] MEDS: SODIUM CHLORIDE 0.9% 1,000 ML IV SCH (07:30)
[2016-09-09] MEDS: ACETAMINOPHEN 325 MG TABLET PO PRN (08:21)
[2016-09-09] MEDS: FERROUS SULFATE 325 MG TABLET PO SCH (08:21)
[2016-09-09] MEDS: METOPROLOL TARTRATE 100 MG TABLET PO SCH (08:22)
[2016-09-09] MEDS: CEFDINIR 300 MG CAPSULE PO SCH (08:22)
[2016-09-09] MEDS: TAMSULOSIN 0.4 MG CAP.ER.24H PO SCH (08:22)
[2016-09-09] MEDS: SENNA/DOCUSATE TABLET PO SCH (08:22)
[2016-09-09] MEDS: FUROSEMIDE 20 MG TABLET PO SCH (08:22)
[2016-09-09] MEDS ORDERED: MAGNESIUM CHLORIDE 64 MG TABLET.DR PO SCH (12:30)
[2016-09-09 12:38] VITALS: BP 123/69
[2016-09-09] MEDS ORDERED: POTA10TA5 PO (12:38)
[2016-09-09] MEDS ORDERED: FURO20TA3 PO (12:38)
[2016-09-09] MEDS ORDERED: LOSA25TA2 PO (12:38)
[2016-09-09] MEDS ORDERED: MAGN64TA9 PO (12:38)
[2016-09-09] MEDS ORDERED: LOSARTAN 25MG TABLET PO SCH (21:00)
[2016-09-10] MEDS ORDERED: POTASSIUM CHLORIDE 10 MEQ TABLET.ER PO SCH (08:00)
[2016-09-10] MEDS ORDERED: FUROSEMIDE 20 MG TABLET PO SCH (09:00)
== END 2016-09-09 17:39 | disposition home health service (06) | DRG 682 ==
LOC: ED 16:11 → EDIP 17:00 → 3NW 18:33
PROVIDERS: ADMIT Internal Medicine; ATTEND Internal Medicine
DX: N17.0 Acute kidney failure with tubular necrosis (principal); I50.23 Acute on chronic systolic (congestive) heart failure; J96.01 Acute respiratory failure with hypoxia; I13.0 Hypertensive heart and chronic kidney disease with heart failure and stage 1 through stage 4 chronic kidney disease, or unspecified chronic kidney disease; N12 Tubulo-interstitial nephritis, not specified as acute or chronic; E78.5 Hyperlipidemia, unspecified; N18.3 Chronic kidney disease, stage 3 (moderate); N40.0 Benign prostatic hyperplasia without lower urinary tract symptoms; E86.0 Dehydration; Z96.653 Presence of artificial knee joint, bilateral; K21.9 Gastro-esophageal reflux disease without esophagitis; N28.1 Cyst of kidney, acquired; Z79.899 Other long term (current) drug therapy; Z85.038 Personal history of other malignant neoplasm of large intestine; Z85.46 Personal history of malignant neoplasm of prostate; Z85.828 Personal history of other malignant neoplasm of skin; Z87.891 Personal history of nicotine dependence; Z98.49 Cataract extraction status, unspecified eye
CPT/HCPCS: 36415; 71020; 76770; 80048; 80053; 81001; 82040; 83735; 84484; 85025; 87040; 87086; 93005; 96360; J0696; J1644; J7030

== ENCOUNTER 2016-09-25 14:24 | Inpatient (IN) | payer MEDICARE, OTHER ==
[~2016-09-25] VITALS: Ht 180.3 cm; Wt 72.2 kg
[~2016-09-25 14:24] MED LIST changes: +AMLO5TAB2 PO; +DOCU-30 PO; +FURO20TA3 PO; +LOSA25TA2 PO; +MAGN64TA9 PO; +POTA10TA5 PO
[2016-09-25] MEDS ORDERED: SODIUM CHLORIDE 0.9% 1,000 ML IV ONE (14:37)
[2016-09-25] MEDS ORDERED: ONDANSETRON 2MG/ML, 2ML IVPush ONE (15:00)
[2016-09-25] MEDS ORDERED: SODIUM CHLORIDE 0.9% 1,000ML IVBOLUS ONE (15:00)
[2016-09-25] MEDS ORDERED: SODIUM CHLORIDE FLUSH 10ML SYR IVF ONE (15:00)
[2016-09-25 15:15] LABS: HEMATOCRIT 37.5 % (39.2-51.8); HEMOGLOBIN 11.8 g/dL (13.7-18.0); WHITE BLOOD COUNT 15.8 x10^3/uL (3.4-10)
[2016-09-25] MEDS ORDERED: home oxygen (15:19)
[2016-09-25] MEDS ORDERED: OMEP20TA62 PO (15:19)
[2016-09-25 15:27] LABS: BLOOD UREA NITROGEN 51 mg/dL (7-18)
[2016-09-25 15:42] LABS: ASPARTATE AMINO TRANSFERASE 139 U/L (15-37)
[2016-09-25 15:43] LABS: ACETAMINOPHEN < 2 mcg/mL (10-30)
[2016-09-25] MEDS ORDERED: ONDANSETRON 2MG/ML, 2ML ONE (16:16)
[2016-09-25] MEDS ORDERED: CEFTRIAXONE PMX 1GM/50ML 50 ML ONE (16:53)
[2016-09-25] MEDS ORDERED: CEFTRIAXONE PMX 1GM/50ML 50 ML IVPB ONE (17:00)
[2016-09-25] MEDS ORDERED: SODIUM CHLORIDE FLUSH 10ML SYR IVF PRN (18:30)
[2016-09-25] MEDS: CEFTRIAXONE PMX 1GM/50ML 50 ML IV SCH (19:00)
[2016-09-25] MEDS ORDERED: hydrALAzine 20 MG/ML, 1ML IVPush PRN (19:00)
[2016-09-25] MEDS ORDERED: ACETAMINOPHEN 325 MG TABLET PO PRN (19:00)
[2016-09-25] MEDS ORDERED: BISACODYL 10 MG SUPP PR PRN (19:00)
[2016-09-25] MEDS ORDERED: ONDANSETRON 2MG/ML, 2ML IVPush PRN (19:00)
[2016-09-25] MEDS ORDERED: DOCUSATE 100 MG CAPSULE PO PRN (19:00)
[2016-09-25] MEDS ORDERED: POLYETHYLENE GLYCOL 17 GM PACKET PO PRN (19:00)
[2016-09-25] MEDS ORDERED: HEPARIN 5,000 UNITS/ML, 1ML ONE (21:40)
[2016-09-25] MEDS ORDERED: METOPROLOL TARTRATE 50 MG TABLET ONE (21:41)
[2016-09-25] MEDS: METOPROLOL TARTRATE 100 MG TABLET PO SCH (21:50)
[2016-09-25] MEDS: HEPARIN 5,000 UNITS/ML, 1ML SQ SCH (21:50)
[2016-09-25] MEDS: SODIUM CHLORIDE 0.9% 1,000 ML IV SCH (22:29)
[2016-09-25 22:38] VITALS: BP 134/66
[2016-09-26 03:31] VITALS: BP 130/64
[2016-09-26] MEDS: HEPARIN 5,000 UNITS/ML, 1ML SQ SCH ×3 (03:44→18:04)
[2016-09-26 04:55] LABS: HEMATOCRIT 30.3 % (39.2-51.8); HEMOGLOBIN 9.8 g/dL (13.7-18.0); WHITE BLOOD COUNT 11.7 x10^3/uL (3.4-10)
[2016-09-26 05:05] LABS: ASPARTATE AMINO TRANSFERASE 80 U/L (15-37); BLOOD UREA NITROGEN 52 mg/dL (7-18)
[2016-09-26 06:54] VITALS: BP 136/68
[2016-09-26] MEDS: CEFTRIAXONE PMX 1GM/50ML 50 ML IV SCH ×2 (07:56→23:06)
[2016-09-26] MEDS ORDERED: FERROUS SULFATE 325 MG TABLET PO SCH (08:00)
[2016-09-26] MEDS ORDERED: AMLODIPINE 5 MG TABLET PO SCH (09:00)
[2016-09-26] MEDS: METOPROLOL TARTRATE 100 MG TABLET PO SCH (09:00)
[2016-09-26] MEDS: TAMSULOSIN 0.4 MG CAP.ER.24H PO SCH (09:00)
[2016-09-26] MEDS: SODIUM CHLORIDE 0.9% 1,000 ML IV SCH ×2 (10:53→23:06)
[2016-09-26 12:55] VITALS: BP 166/73
[2016-09-26 16:42] VITALS: BP 179/84
[2016-09-26] MEDS: FERROUS SULFATE 325 MG TABLET PO SCH (18:04)
[2016-09-26 18:53] VITALS: BP 180/71
[2016-09-26] MEDS: SIMVASTATIN 40 MG TABLET PO SCH (21:00)
[2016-09-27 00:50] VITALS: BP 166/78
[2016-09-27 05:16] LABS: HEMATOCRIT 29.7 % (39.2-51.8); HEMOGLOBIN 9.5 g/dL (13.7-18.0); WHITE BLOOD COUNT 8.1 x10^3/uL (3.4-10)
[2016-09-27 05:25] LABS: BLOOD UREA NITROGEN 44 mg/dL (7-18)
[2016-09-27 05:31] LABS: ASPARTATE AMINO TRANSFERASE 73 U/L (15-37)
[2016-09-27 07:08] VITALS: BP 171/73
[2016-09-27] MEDS: SODIUM CHLORIDE 0.9% 1,000 ML IV SCH ×2 (08:32→21:06)
[2016-09-27] MEDS: CEFTRIAXONE PMX 1GM/50ML 50 ML IV SCH ×2 (08:32→21:05)
[2016-09-27] MEDS: ASPIRIN 81 MG TABLET EC PO SCH (10:11)
[2016-09-27] MEDS: METOPROLOL SUCCINATE 50 MG TAB.ER.24H PO SCH (10:11)
[2016-09-27] MEDS: SIMVASTATIN 40 MG TABLET PO SCH (10:12)
[2016-09-27] MEDS: FERROUS SULFATE 325 MG TABLET PO SCH ×3 (10:12→21:05)
[2016-09-27] MEDS: HEPARIN 5,000 UNITS/ML, 1ML SQ SCH ×2 (10:13→21:06)
[2016-09-27] MEDS: TAMSULOSIN 0.4 MG CAP.ER.24H PO SCH (10:13)
[2016-09-27 12:47] VITALS: BP 171/70
[2016-09-27 19:05] VITALS: BP 154/73
[2016-09-27] MEDS ORDERED: POLYETHYLENE GLYCOL 17 GM PACKET PO PRN (19:30)
[2016-09-27] MEDS ORDERED: hydrALAzine 20 MG/ML, 1ML IVPush PRN (19:30)
[2016-09-27] MEDS ORDERED: BISACODYL 10 MG SUPP PR PRN (19:30)
[2016-09-27] MEDS ORDERED: ONDANSETRON 2MG/ML, 2ML IVPush PRN (19:30)
[2016-09-27] MEDS ORDERED: DOCUSATE 100 MG CAPSULE PO PRN (19:30)
[2016-09-27] MEDS: ACETAMINOPHEN 325 MG TABLET PO PRN (21:06)
[2016-09-28 02:59] VITALS: BP 141/69
[2016-09-28] MEDS: METOPROLOL SUCCINATE 50 MG TAB.ER.24H PO SCH (05:52)
[2016-09-28] MEDS: HEPARIN 5,000 UNITS/ML, 1ML SQ SCH ×3 (05:52→20:31)
[2016-09-28] MEDS: ASPIRIN 81 MG TABLET EC PO SCH (05:52)
[2016-09-28 06:28] LABS: BLOOD UREA NITROGEN 33 mg/dL (7-18)
[2016-09-28 07:44] VITALS: BP 170/87
[2016-09-28] MEDS: TAMSULOSIN 0.4 MG CAP.ER.24H PO SCH (12:31)
[2016-09-28] MEDS: SODIUM CHLORIDE 0.9% 1,000 ML IV SCH ×2 (12:31→23:06)
[2016-09-28] MEDS: FERROUS SULFATE 325 MG TABLET PO SCH ×3 (12:31→20:31)
[2016-09-28] MEDS: CEFTRIAXONE PMX 1GM/50ML 50 ML IV SCH ×2 (12:31→20:31)
[2016-09-28 12:52] VITALS: BP 178/80
[2016-09-28 18:45] LABS: BLOOD UREA NITROGEN 29 mg/dL (7-18)
[2016-09-28 19:32] VITALS: BP 173/82
[2016-09-28] MEDS: SIMVASTATIN 40 MG TABLET PO SCH (20:31)
[2016-09-28] MEDS: ACETAMINOPHEN 325 MG TABLET PO PRN (20:32)
[2016-09-29 00:41] VITALS: BP 170/88
[2016-09-29] MEDS: ASPIRIN 81 MG TABLET EC PO SCH (05:21)
[2016-09-29] MEDS: HEPARIN 5,000 UNITS/ML, 1ML SQ SCH ×2 (05:21→18:12)
[2016-09-29] MEDS: METOPROLOL SUCCINATE 50 MG TAB.ER.24H PO SCH (05:21)
[2016-09-29 05:38] LABS: BLOOD UREA NITROGEN 26 mg/dL (7-18)
[2016-09-29 07:10] VITALS: BP 175/91
[2016-09-29] MEDS: FERROUS SULFATE 325 MG TABLET PO SCH ×3 (09:41→18:12)
[2016-09-29] MEDS: SODIUM CHLORIDE 0.9% 1,000 ML IV SCH ×2 (09:41→21:20)
[2016-09-29] MEDS: CEFTRIAXONE PMX 1GM/50ML 50 ML IV SCH (09:41)
[2016-09-29] MEDS: TAMSULOSIN 0.4 MG CAP.ER.24H PO SCH (09:41)
[2016-09-29 13:16] VITALS: BP 165/87
[2016-09-29 19:40] VITALS: BP 171/96
[2016-09-29 20:21] VITALS: BP 163/81
[2016-09-29] MEDS: SIMVASTATIN 40 MG TABLET PO SCH (21:20)
[2016-09-30] MEDS: HEPARIN 5,000 UNITS/ML, 1ML SQ SCH ×3 (02:13→22:51)
[2016-09-30 03:45] VITALS: BP 175/76
[2016-09-30 04:21] VITALS: BP 175/76
[2016-09-30] MEDS: ASPIRIN 81 MG TABLET EC PO SCH (04:31)
[2016-09-30] MEDS: METOPROLOL SUCCINATE 50 MG TAB.ER.24H PO SCH (04:31)
[2016-09-30 05:59] VITALS: BP 171/77
[2016-09-30 06:25] LABS: BLOOD UREA NITROGEN 20 mg/dL (7-18); TOTAL IRON BINDING CAPACITY 345 mcg/dL (250-450)
[2016-09-30 08:16] VITALS: BP 166/77
[2016-09-30] MEDS: SODIUM CHLORIDE 0.9% 1,000 ML IV SCH ×2 (10:16→19:06)
[2016-09-30] MEDS: FERROUS SULFATE 325 MG TABLET PO SCH ×3 (10:16→22:51)
[2016-09-30] MEDS: TAMSULOSIN 0.4 MG CAP.ER.24H PO SCH (10:16)
[2016-09-30 16:48] VITALS: BP 149/71
[2016-09-30 19:39] VITALS: BP 162/80
[2016-09-30] MEDS: SIMVASTATIN 40 MG TABLET PO SCH (22:51)
[2016-10-01 03:03] VITALS: BP 154/82
[2016-10-01] MEDS: SODIUM CHLORIDE 0.9% 1,000 ML IV SCH ×2 (06:25→17:30)
[2016-10-01] MEDS: ASPIRIN 81 MG TABLET EC PO SCH (06:27)
[2016-10-01] MEDS: HEPARIN 5,000 UNITS/ML, 1ML SQ SCH ×3 (06:27→20:50)
[2016-10-01] MEDS: METOPROLOL SUCCINATE 50 MG TAB.ER.24H PO SCH (06:27)
[2016-10-01 07:30] VITALS: BP 162/84
[2016-10-01] MEDS: LORazepam 2 MG/ML, 1ML IVPush PRN (08:21)
[2016-10-01] MEDS: TAMSULOSIN 0.4 MG CAP.ER.24H PO SCH (08:21)
[2016-10-01] MEDS: FERROUS SULFATE 220 MG/5 ML ORAL SOL PO SCH ×2 (12:24→17:31)
[2016-10-01 13:01] VITALS: BP 150/80
[2016-10-01] MEDS: METOPROLOL TARTRATE 50 MG TABLET PO SCH (17:31)
[2016-10-01 20:15] VITALS: BP 152/85
[2016-10-01] MEDS: SIMVASTATIN 40 MG TABLET PO SCH (20:50)
[2016-10-02 00:56] VITALS: BP 165/77
[2016-10-02] MEDS: SODIUM CHLORIDE 0.9% 1,000 ML IV SCH ×2 (02:00→05:26)
[2016-10-02] MEDS: HEPARIN 5,000 UNITS/ML, 1ML SQ SCH ×2 (05:54→13:54)
[2016-10-02] MEDS: METOPROLOL TARTRATE 50 MG TABLET PO SCH (05:55)
[2016-10-02] MEDS ORDERED: ASPIRIN 81 MG TABLET CHEW PO SCH ×2 (06:00)
[2016-10-02 07:20] VITALS: BP 164/86
[2016-10-02] MEDS: TAMSULOSIN 0.4 MG CAP.ER.24H PO SCH (07:40)
[2016-10-02] MEDS: FERROUS SULFATE 220 MG/5 ML ORAL SOL PO SCH ×2 (07:40→12:05)
[2016-10-02] MEDS ORDERED: ASPI-515 PO (11:19)
[2016-10-02] MEDS ORDERED: METO50TA82 PO (11:19)
[2016-10-02] MEDS ORDERED: SIMV40TA3 PO (11:19)
[2016-10-02 13:14] VITALS: BP 159/89
[2016-10-02] MEDS: LORazepam 2 MG/ML, 1ML IVPush PRN (14:15)
== END 2016-10-02 16:59 | DRG 871 ==
LOC: ED 18:11 → SUATTDRO 18:32 → ED 18:39 → EDIP 18:59 → 3NE 21:56 → 4EST 09-26 16:16 → 4WST 10-01 08:41
PROVIDERS: ATTEND Internal Medicine
DX: A41.9 Sepsis, unspecified organism (principal); G93.40 Encephalopathy, unspecified; I63.9 Cerebral infarction, unspecified; N17.0 Acute kidney failure with tubular necrosis; I13.0 Hypertensive heart and chronic kidney disease with heart failure and stage 1 through stage 4 chronic kidney disease, or unspecified chronic kidney disease; I50.22 Chronic systolic (congestive) heart failure; D63.8 Anemia in other chronic diseases classified elsewhere; T79.6XXA Traumatic ischemia of muscle, initial encounter; E87.2 Acidosis; N12 Tubulo-interstitial nephritis, not specified as acute or chronic; H49.01 Third [oculomotor] nerve palsy, right eye; N18.3 Chronic kidney disease, stage 3 (moderate); N30.90 Cystitis, unspecified without hematuria; E83.52 Hypercalcemia; D50.9 Iron deficiency anemia, unspecified; E78.5 Hyperlipidemia, unspecified; M54.9 Dorsalgia, unspecified; I08.0 Rheumatic disorders of both mitral and aortic valves; H53.2 Diplopia; X58.XXXA Exposure to other specified factors, initial encounter; K21.9 Gastro-esophageal reflux disease without esophagitis; N40.0 Benign prostatic hyperplasia without lower urinary tract symptoms; Z96.653 Presence of artificial knee joint, bilateral; Z85.038 Personal history of other malignant neoplasm of large intestine; Z85.46 Personal history of malignant neoplasm of prostate; Z85.828 Personal history of other malignant neoplasm of skin; Z87.440 Personal history of urinary (tract) infections; Z87.891 Personal history of nicotine dependence; Z90.49 Acquired absence of other specified parts of digestive tract; Z93.3 Colostomy status
CPT/HCPCS: 36415; 70450; 70551; 71010; 73523; 74230; 80048; 80053; 80307; 80329; 81001; 82140; 82436; 82550; 82553; 82570; 82962; 83540; 83550; 83605; 83735; 83880; 84100; 84133; 84145; 84300; 84550; 85025; 85610; 85730; 87040; 87086; 93005; 93306; 93880; 96365; 96375; J0696; J1644; J2405; 92523-GN; G0480; J0360; J2060; J7030